=== PATIENT | female | born 2000 | race American Indian/Alaskan Native ===

== ENCOUNTER 2018-09-23 03:49 | Outpatient (CLI) | payer MEDICAID ==
[2018-09-23] MEDS ORDERED: LACTATED RINGERS 1,000 ML ONE (04:14)
[2018-09-23 04:42] VITALS: BP 118/76
[2018-09-23] MEDS ORDERED: LACTATED RINGERS 1,000 ML IV ONE (04:42)
[2018-09-23 05:59] LABS: Color,Urine Brown (Yellow)
[2018-09-23 06:00] LABS: Bilirubin,Urine Color Interference (Negative)
[2018-09-23 06:06] LABS: Bacteria,Urine 4+ /HPF (Negative); Blood,Urine LG (Negative); Mucus,Urine FEW /HPF
[2018-09-23] MEDS ORDERED: ANCEF/STERILE WATER 2 GM/20 ML 2 GM/20 ML SYRINGE IV NR (07:00)
== END 2018-09-23 07:13 | disposition home or self-care (01) ==
LOC: TRG 03:49
PROVIDERS: ATTEND Obstetrics & Gynecology
DX: O47.03 False labor before 37 completed weeks of gestation, third trimester (principal); Z3A.36 36 weeks gestation of pregnancy
CPT/HCPCS: 81001; J0690; J7120

== ENCOUNTER 2018-09-30 17:26 | Inpatient (IN) | payer MEDICAID ==
[2018-09-30] MEDS ORDERED: MINERAL OIL PO PRN (18:01)
[2018-09-30] MEDS ORDERED: PHENERGAN PO PRN (18:01)
[2018-09-30] MEDS ORDERED: BRETHINE SUB-Q PRN (18:01)
[2018-09-30] MEDS ORDERED: BRETHINE IVP PRN (18:01)
[2018-09-30] MEDS ORDERED: ZOFRAN IV PRN (18:01)
[2018-09-30] MEDS ORDERED: XYLOCAINE 2% INFILTRATI ONE (18:01)
[2018-09-30] MEDS ORDERED: SUBLIMAZE IV PRN (18:01)
[2018-09-30] MEDS ORDERED: STADOL IV PRN (18:01)
--- NOTE | 2018-09-30 18:01 | History and Physical Report ---
History of Present Illness Date of examination: 09/30/18 Chief complaint: Labor History of present illness: Pt is a 18yo BF EDC 10/16/18; EGA 37 5/7 weeks presents to L&D complaining of RUC's q 3-4 mins. She received late care at [facility] at 23 weeks after transfer from [place]. course has been unremarkable. records are available and GBS is Negative. Past History Past Medical History: no pertinent history Past Surgical History: no surgical history Social history: no significant social history, single - Obstetrical History Expected Date of Delivery: 10/16/18 Actual Gestation: 37 Week(s) 5 Day(s) : 1 Medications and Allergies Allergies Allergy/AdvReac Type Severity Reaction Status Date / Time No Known Allergies Allergy Unverified 07/20/18 11:54 Review of Systems All systems: negative - Vital Signs Vital signs: Vital Signs Pulse BP 90 121/69 09/30/18 17:38 09/30/18 17:38 Temp Pulse Resp BP Pulse Ox 90 121/69 09/30/18 17:38 09/30/18 17:38 - Physical Exam Breasts: Positive: deferred Cardiovascular: Regular rate Lungs: Positive: Clear to auscultation Abdomen: Positive: normal appearance Genitourinary (Female): Positive: normal external genitalia Vagina: Positive: normal moisture Uterus: Positive: enlarged Extremities: Positive: normal - Obstetrical FHR: category 1 Uterine Contraction Monitor Mode: External Cervical Dilatation: 5 (per nurse) Cervical Effacement Percentage: 80 (per nurse) station: -2 Uterine Contraction Pattern: Regular Uterine Tone Measurement Phase: Contraction Uterine Contraction Intensity: Moderate Results Result Diagrams: 09/30/18 17:59 All other labs normal. Assessment and Plan - Patient Problems (1) 37 weeks gestation of Onset Date: 09/30/18 Current Visit: Yes Status: Acute Plan to address problem: A: IUP @ 37 5/7 weeks in labor GBS Negative P: Admit to L&D for expectant vaginal delivery
[2018-09-30 18:48] LABS: Hematocrit 35.8 % (30.3-42.9); Hemoglobin 11.7 gm/dl (10.1-14.3); Mean Corpuscular HGB Conc 33 % (30-34); Mean Corpuscular Volume 74 fl (79-97); Platelet Count 263 K/mm3 (140-440); Red Blood Count 4.81 M/mm3 (3.65-5.03); Red Cell Distribution Width 19.3 % (13.2-15.2)
[2018-09-30] MEDS ORDERED: NARCAN 2 MG/2 ML IV PRN (18:54)
[2018-09-30] MEDS ORDERED: fentaNYL-BUPIV 2 MCG/ML-0.125% 200 MCG/100 ML BAG EPIDURAL SCH (19:00)
[2018-09-30] MEDS ORDERED: PITOCin/NS 20 UNIT/1000ML DRIP 20 UNITS/1,000 ML BAG IV SCH (19:00)
[2018-09-30] MEDS ORDERED: PITOCin/NS 30 UNIT/500ML 30 UNITS/500 ML BAG IV SCH (19:00)
[2018-09-30] MEDS ORDERED: SENSORCAINE/DEXTR 0.75-8.25% INFILTRATI ONE (19:04)
[2018-09-30] MEDS: LACTATED RINGERS 1,000 ML IV SCH ×2 (20:55→21:39)
--- NOTE | 2018-10-01 02:54 | Procedure Note ---
OB Delivery Note - Delivery Date of Delivery: 10/01/18 Surgeon: DANII BOWERS Estimated blood loss: 200cc - Vaginal Delivery presentation: vertex Delivery position: OP Intrapartum events: meconium Delivery induction: none Delivery augmentation: rupture of membranes, pitocin Delivery monitor: external FHT, external uterine Route of delivery: Delivery placenta: spontaneous Delivery cord: 3 umbilical vessels Episiotomy: none Delivery laceration: 1st degree (right labial - not bleeding, not repaired) Anesthesia: epidural Delivery comments: Infant delivered OP and placed on Mom's chest for [id number] bonding and delayed cord clamping, cut by Dad - Infant A at 1 minute: 8 at 5 minutes: 9 Infant Gender: Female (2789gms)
[2018-10-01] MEDS ORDERED: ZOFRAN IV PRN (02:56)
[2018-10-01] MEDS ORDERED: TUCKS PAD TP PRN (02:56)
[2018-10-01] MEDS ORDERED: DULCOLAX PR PRN (02:56)
[2018-10-01] MEDS ORDERED: LANSINOH TP PRN (02:56)
[2018-10-01] MEDS ORDERED: BENADRYL PO PRN (02:56)
[2018-10-01] MEDS ORDERED: PHENERGAN PO PRN (02:56)
[2018-10-01] MEDS ORDERED: NORCO 5/325 PO PRN (02:56)
[2018-10-01] MEDS ORDERED: TYLENOL PO PRN (02:56)
[2018-10-01] MEDS ORDERED: MILK OF MAGNESIA PO PRN (02:56)
[2018-10-01] MEDS ORDERED: PHENERGAN PR PRN (02:56)
[2018-10-01] MEDS ORDERED: PITOCin/NS 20 UNIT/1000ML DRIP 20 UNITS/1,000 ML BAG IV SCH (03:00)
[2018-10-01] MEDS ORDERED: SODIUM CHLORIDE FLUSH SYRINGE 10 ML IV PRN (03:00)
[2018-10-01] MEDS: IBUPROFEN PO SCH ×4 (07:26→22:28)
[2018-10-01] MEDS: PRENATAL VITAMIN PO SCH (10:03)
[2018-10-01] MEDS: COLACE PO SCH ×2 (10:03→22:31)
[2018-10-01] MEDS: FEOSOL PO SCH ×2 (10:03→22:31)
[2018-10-01 17:05] LABS: Hematocrit 28.3 % (30.3-42.9); Hemoglobin 9.3 gm/dl (10.1-14.3)
[2018-10-02] MEDS ORDERED: M-M-R II VACCINE SUB-Q ONE (02:56)
[2018-10-02] MEDS: IBUPROFEN PO SCH ×4 (03:00→22:33)
[2018-10-02] MEDS ORDERED: BOOSTRIX IM ONE (06:00)
[2018-10-02] MEDS: COLACE PO SCH ×2 (12:18→22:33)
[2018-10-02] MEDS: PRENATAL VITAMIN PO SCH (12:19)
[2018-10-02] MEDS: FEOSOL PO SCH ×2 (12:19→22:32)
--- NOTE | 2018-10-02 12:38 | Progress Note ---
Assessment and Plan - Patient Problems (1) 37 weeks gestation of Onset Date: 09/30/18 Current Visit: Yes Status: Resolved (2) (normal spontaneous vaginal delivery) Onset Date: 10/02/18 Current Visit: Yes Status: Resolved Plan to address problem: A: S/P - PPD #1 Doing well Asymptomatic anemia - stable P: May go home tomorrow. (3) Acute blood loss anemia Onset Date: 10/02/18 Current Visit: Yes Status: Resolved Subjective - Subjective Date of service: 10/02/18 Principal diagnosis: s/p - PPD #1 Interval history: Pt is feeling well without complaints. Bleeding has improved. Patient reports: appetite normal, voiding normally, pain well controlled, fla tus, ambulating normally, no dizzy ambulation, no nauseated : doing well, nursing well, bottle feeding Objective - Vital Signs Latest vital signs: Vital Signs Temp Pulse Resp BP BP Pulse Ox 10/02/18 07:36 98.1 F 73 16 103/69 100 10/02/18 00:00 98.2 F 85 20 103/62 10/01/18 16:47 98.3 F 93 H 20 111/66 99 Intake and Output 10/01/18 10/02/18 10/02/18 22:59 06:59 14:59 Intake Total 1560 240 360 Balance 1560 240 360 Intake: Oral 960 240 360 Intake, Free Water 600 Other: Total, Intake Amount 240 240 360 # Voids Indwelling Catheter 0 1 Void 1 1 - Exam Breasts: Present: deferred Abdomen: Present: normal appearance, soft Uterus: Present: normal, firm, fundal height below umbilicus Extremities: Present: normal - Labs Labs: Abnormal lab results 10/01/18 Range/Units 16:55 Hgb 9.3 L (10.1-14.3) gm/dl Hct 28.3 L D (30.3-42.9) % Laboratory Tests 09/30/18 09/30/18 09/30/18 17:59 19:20 19:39 WBC 13.6 H RBC 4.81 Hgb 11.7 Hct 35.8 MCV 74 L MCH 24 L MCHC 33 RDW 19.3 H Plt Count 263 RPR Nonreactive Blood Type O POSITIVE Antibody Screen Negative 10/01/18 16:55 WBC RBC Hgb 9.3 L Hct 28.3 L D MCV MCH MCHC RDW Plt Count RPR Blood Type Antibody Screen
[2018-10-03] MEDS: IBUPROFEN PO SCH (07:03)
[2018-10-03] MEDS: COLACE PO SCH (10:47)
[2018-10-03] MEDS: FEOSOL PO SCH (10:47)
[2018-10-03] MEDS: PRENATAL VITAMIN PO SCH (10:47)
--- NOTE | 2018-10-03 12:30 | Discharge Summary ---
Providers - Providers Date of Admission: 09/30/18 18:11 Date of discharge: 10/03/18 Attending physician: DANII BOWERS Primary care physician: DANII BOWERS Hospitalization Reason for admission: active labor, IUP at term Delivery: Episiotomy: none Laceration: 1st degree Other procedures: none complications: none Discharge diagnosis: IUP at term delivered [place] baby: female Hospital course: Unremarkable. Condition at discharge: Good Disposition: DC-01 TO HOME OR SELFCARE - Discharge Diagnoses (1) 37 weeks gestation of Status: Resolved (2) (normal spontaneous vaginal delivery) Status: Resolved (3) Acute blood loss anemia Status: Resolved Plan - Discharge Medications Prescriptions: Ferrous Sulfate [Feosol 325 MG tab] 325 mg PO BID #60 tablet Ibuprofen [Motrin 600 MG tab] 600 mg PO Q6H #30 tablet Vit-Fe Fumar-FA [ Vitamin] 1 each PO QDAY #30 tablet - Provider Discharge Summary Activity: routine, no sex for 6 weeks, no heavy lifting 4 weeks, no strenuous exercise Diet: routine Instructions: routine Additional instructions: [] Smoking cessation referral if applicable(refer to patient education folder for contact #) [] Refer to [facility] Booklet Call your doctor immediately for: * Fever > 100.5 * Heavy vaginal bleeding ( >1 pad per hour) * Severe persistent headache * Shortness of breath * Reddened, hot, painful area to leg or breast * Drainage or odor from incision. * Keep incision clean and dry at all times and follow doctor's instructions regarding bathing/showering - Follow up plan Follow up: DANII BOWERS MD [Primary Care Provider] - 6 Weeks Forms: [facility] Discharge Summary, Discharge Signature Page
[2018-10-03 19:21] VITALS: BP 112/71
== END 2018-10-03 18:00 | disposition home or self-care (01) | DRG 775 ==
LOC: TRG 17:26 → LD 18:11 → OB 10-01 07:24
PROVIDERS: ADMIT Obstetrics & Gynecology; ATTEND Obstetrics & Gynecology
PROC: 10E0XZZ Delivery of Products of Conception, External Approach (ICD-10-PCS; principal; 2018-10-01)
PROC: 3E0R3BZ Introduction of Anesthetic Agent into Spinal Canal, Percutaneous Approach (ICD-10-PCS; 2018-10-01)
PROC: 00HU33Z Insertion of Infusion Device into Spinal Canal, Percutaneous Approach (ICD-10-PCS; 2018-10-01)
PROC: 3E0234Z Introduction of Serum, Toxoid and Vaccine into Muscle, Percutaneous Approach (ICD-10-PCS; 2018-10-02)
DX: O77.0 Labor and delivery complicated by meconium in amniotic fluid (principal); Z3A.37 37 weeks gestation of pregnancy; Z37.0 Single live birth; O70.0 First degree perineal laceration during delivery; O90.81 Anemia of the puerperium; D62 Acute posthemorrhagic anemia; Z23 Encounter for immunization
CPT/HCPCS: 36415; 85014; 85018; 85027; 86592; 86850; 86900; 86901; 90707; G0378; J2590; J3010; J7120

== ENCOUNTER 2019-01-15 14:02 | Emergency (ER) | payer MEDICAID ==
[2019-01-15 14:37] VITALS: BP 111/73
--- NOTE | 2019-01-15 14:39 | Emergency Department Report ---
ED ENT HPI - General Chief complaint: Earache Stated complaint: RT EARACHE Time Seen by Provider: 01/15/19 14:36 Source: patient Mode of arrival: Ambulatory Limitations: No Limitations - History of Present Illness Initial comments: This is a 18-year-old female nontoxic well in appearance with no signs of distress presents to the ED with complaint of right earache. Patient denies any hearing loss. Denies any mastoid tenderness. Denies any fever, chills, headache, nausea, vomiting, chest pain or SOB. Denies any other complaints. Denies any allergies. MD complaint: ear pain -: days(s) Location: R ear Severity: mild Severity scale (0 -10): 8 Quality: aching Consistency: constant Improves with: none Worsens with: none Associated Symptoms: denies: fever, cough, gum swelling, toothache, pain with swallowing, sore throat, tinnitus, hearing loss, discharge from ear, rhinorrhea - Related Data Home Medications Medication Instructions Recorded Confirmed Last Taken Ferrous Sulfate [Feosol] 325 mg PO BID 09/30/18 09/30/18 09/29/18 Vit-Fe Fumar-FA [ 1 tab PO QDAY 09/30/18 09/30/18 09/29/18 Vitamin] Previous Rx's Medication Instructions Recorded Last Taken Type Ferrous Sulfate [Feosol 325 MG tab] 325 mg PO BID #60 tablet 10/03/18 Unknown Rx Ibuprofen [Motrin 600 MG tab] 600 mg PO Q6H #30 tablet 10/03/18 Unknown Rx Vit-Fe Fumar-FA [ 1 each PO QDAY #30 tablet 10/03/18 Unknown Rx Vitamin] Amoxicillin [Amoxicillin TAB] 875 mg PO BID #20 tablet 01/15/19 Unknown Rx Ibuprofen [Motrin] 600 mg PO Q8H PRN #20 tablet 01/15/19 Unknown Rx Allergies Allergy/AdvReac Type Severity Reaction Status Date / Time No Known Allergies Allergy Unverified 07/20/18 11:54 ED Dental HPI - General Chief complaint: Earache Stated complaint: RT EARACHE Time Seen by Provider: 01/15/19 14:36 Source: patient Mode of arrival: Ambulatory Limitations: No Limitations - Related Data Home Medications Medication Instructions Recorded Confirmed Last Taken Ferrous Sulfate [Feosol] 325 mg PO BID 09/30/18 09/30/18 09/29/18 Vit-Fe Fumar-FA [ 1 tab PO QDAY 09/30/18 09/30/18 09/29/18 Vitamin] Previous Rx's Medication Instructions Recorded Last Taken Type Ferrous Sulfate [Feosol 325 MG tab] 325 mg PO BID #60 tablet 10/03/18 Unknown Rx Ibuprofen [Motrin 600 MG tab] 600 mg PO Q6H #30 tablet 10/03/18 Unknown Rx Vit-Fe Fumar-FA [ 1 each PO QDAY #30 tablet 10/03/18 Unknown Rx Vitamin] Amoxicillin [Amoxicillin TAB] 875 mg PO BID #20 tablet 01/15/19 Unknown Rx Ibuprofen [Motrin] 600 mg PO Q8H PRN #20 tablet 01/15/19 Unknown Rx Allergies Allergy/AdvReac Type Severity Reaction Status Date / Time No Known Allergies Allergy Unverified 07/20/18 11:54 ED Review of Systems ROS: Stated complaint: RT EARACHE Other details as noted in HPI Constitutional: denies: chills, fever Eyes: denies: eye pain, eye discharge, vision change ENT: ear pain. denies: throat pain Respiratory: denies: cough, shortness of breath, wheezing Cardiovascular: denies: chest pain, palpitations Endocrine: no symptoms reported Gastrointestinal: denies: abdominal pain, nausea, diarrhea Genitourinary: denies: urgency, dysuria, discharge Musculoskeletal: denies: back pain, joint swelling, arthralgia Skin: denies: rash, lesions Neurological: denies: headache, weakness, paresthesias Psychiatric: denies: anxiety, depression Hematological/Lymphatic: denies: easy bleeding, easy bruising ED Past Medical Hx - Past Medical History Hx Hypertension: No Hx Congestive Heart Failure: No Hx Diabetes: No Hx Deep Vein Thrombosis: No Hx Renal Disease: No Hx Sickle Cell Disease: No Hx Seizures: No Hx Asthma: Yes (months ago) Hx COPD: No Hx HIV: No - Social History Smoking Status: Never Smoker - Medications Home Medications: Home Medications Medication Instructions Recorded Confirmed Last Taken Type Ferrous Sulfate [Feosol] 325 mg PO BID 09/30/18 09/30/18 09/29/18 History Vit-Fe Fumar-FA [ 1 tab PO QDAY 09/30/18 09/30/18 09/29/18 History Vitamin] Ferrous Sulfate [Feosol 325 MG tab] 325 mg PO BID #60 tablet 10/03/18 Unknown Rx Ibuprofen [Motrin 600 MG tab] 600 mg PO Q6H #30 tablet 10/03/18 Unknown Rx Vit-Fe Fumar-FA [ 1 each PO QDAY #30 tablet 10/03/18 Unknown Rx Vitamin] Amoxicillin [Amoxicillin TAB] 875 mg PO BID #20 tablet 01/15/19 Unknown Rx Ibuprofen [Motrin] 600 mg PO Q8H PRN #20 tablet 01/15/19 Unknown Rx ED Physical Exam - General Limitations: No Limitations General appearance: alert, in no apparent distress - Head Head exam: Present: atraumatic, normocephalic - Expanded ENT Exam Expanded Ear exam: Present: normal external inspection TM/Canal exam: Erythema: Right TM, Bulging: Right TM Mouth exam: Present: normal external inspection. Absent: drooling, trismus, muffled voice Teeth exam: Present: normal inspection Throat exam: Positive: normal inspection - Neck Neck exam: Present: normal inspection, full ROM. Absent: tenderness, meningismus, lymphadenopathy - Extremities Exam Extremities exam: Present: normal inspection, full ROM - Back Exam Back exam: Present: normal inspection, full ROM - Neurological Exam Neurological exam: Present: alert, oriented X3 - Psychiatric Psychiatric exam: Present: normal affect, normal mood - Skin Skin exam: Present: warm, dry, intact, normal color. Absent: rash ED Course - Reevaluation(s) Reevaluation #1: 01/15/19 14:38 Patient is speaking in full sentences with no signs of distress noted. ED Medical Decision Making - Medical Decision Making Patient was instructed to Follow-up with a primary care doctor in 3-5 days or if symptoms worsen and continue return to emergency room as soon as possible. At time of discharge, the patient does not seem toxic or ill in appearance. No acute signs of distress noted. Patient agrees to discharge treatment plan of care. No further questions noted by the patient. Critical care attestation.: If time is entered above; I have spent that time in minutes in the direct care of this critically ill patient, excluding procedure time. ED Disposition Clinical Impression: Right otitis media Disposition: DC-01 TO HOME OR SELFCARE Is pt being admited?: No Does the pt Need Aspirin: No Condition: Stable Instructions: Otitis Media (ED) Additional Instructions: Follow-up with a primary care doctor in 3-5 days or if symptoms worsen and continue return to emergency room as soon as possible Prescriptions: Amoxicillin [Amoxicillin TAB] 875 mg PO BID #20 tablet Ibuprofen [Motrin] 600 mg PO Q8H PRN #20 tablet PRN Reason: Pain Referrals: PRIMARY CARE, [Referring] - 3-5 Days JUSTIN MCKEON MD [Staff Physician] - 3-5 Days [facility] [Outside] - 3-5 Days Forms: Work/School Release Form(ED)
== END 2019-01-15 14:50 | disposition home or self-care (01) ==
LOC: ED 14:02
DX: H66.91 Otitis media, unspecified, right ear (principal); J45.909 Unspecified asthma, uncomplicated; Z88.6 Allergy status to analgesic agent; Z88.1 Allergy status to other antibiotic agents; Z88.8 Allergy status to other drugs, medicaments and biological substances
CPT/HCPCS: 99281

== ENCOUNTER 2020-08-02 19:00 | Emergency (ER) | payer MEDICAID ==
[2020-08-02 20:25] VITALS: BP 126/67
--- NOTE | 2020-08-02 20:43 | Emergency Department Report ---
ED ENT HPI - General Chief complaint: Sore Throat Stated complaint: STREP THROAT Time Seen by Provider: 08/02/20 20:39 Source: patient Mode of arrival: Ambulatory Limitations: No Limitations - History of Present Illness Initial comments: The patient was evaluated in the emergency department for symptoms described in the history of present illness. He/she was evaluated in the context of the global COVID-19 pandemic, which necessitated consideration that the patient might be at risk for infection with the virus that causes COVID-19. Institutional protocols and algorithms that pertain to the evaluation of patients at risk for COVID-19 are in a state of rapid change based on information released by regulatory bodies including the CDC and federal and state organizations. These policies and algorithms were followed during the patient's care in the emergency department. Please note that these policies, procedures and recommendations changed on a rapid basis. 20-year-old -[place] female presents to the emergency room with 1 day history of sore throat. Patient admits to fever chills earache on the left. Positive strep contact during the weekend. Negative Covid test today. Denies any past medical history currently takes no medications on a daily basis and has no known drug allergies. Makes it worse is swallowing. MD complaint: sore throat, difficulty swallowing Onset/Timin -: days(s) Location: throat Severity: severe Severity scale (0 -10): 9 Quality: stabbing, sharp Consistency: constant Improves with: none Worsens with: swallowing Associated Symptoms: fever, pain with swallowing, sore throat - Related Data Home Medications Medication Instructions Recorded Confirmed Last Taken Ferrous Sulfate [Feosol] 325 mg PO BID 09/30/18 09/30/18 09/29/18 Vit-Fe Fumar-FA [ 1 tab PO QDAY 09/30/18 09/30/18 09/29/18 Vitamin] Previous Rx's Medication Instructions Recorded Last Taken Type Ferrous Sulfate [Feosol 325 MG tab] 325 mg PO BID #60 tablet 10/03/18 Unknown Rx Ibuprofen [Motrin 600 MG tab] 600 mg PO Q6H #30 tablet 10/03/18 Unknown Rx Vit-Fe Fumar-FA [ 1 each PO QDAY #30 tablet 10/03/18 Unknown Rx Vitamin] Amoxicillin [Amoxicillin TAB] 875 mg PO BID #20 tablet 08/02/20 Unknown Rx Ibuprofen [Motrin 600 MG tab] 600 mg PO Q8H PRN #20 tablet 08/02/20 Unknown Rx Allergies Allergy/AdvReac Type Severity Reaction Status Date / Time No Known Allergies Allergy Unverified 07/20/18 11:54 ED Dental HPI - General Chief complaint: Sore Throat Stated complaint: STREP THROAT Time Seen by Provider: 08/02/20 20:39 Source: patient Mode of arrival: Ambulatory Limitations: No Limitations - Related Data Home Medications Medication Instructions Recorded Confirmed Last Taken Ferrous Sulfate [Feosol] 325 mg PO BID 09/30/18 09/30/18 09/29/18 Vit-Fe Fumar-FA [ 1 tab PO QDAY 09/30/18 09/30/18 09/29/18 Vitamin] Previous Rx's Medication Instructions Recorded Last Taken Type Ferrous Sulfate [Feosol 325 MG tab] 325 mg PO BID #60 tablet 10/03/18 Unknown Rx Ibuprofen [Motrin 600 MG tab] 600 mg PO Q6H #30 tablet 10/03/18 Unknown Rx Vit-Fe Fumar-FA [ 1 each PO QDAY #30 tablet 10/03/18 Unknown Rx Vitamin] Amoxicillin [Amoxicillin TAB] 875 mg PO BID #20 tablet 08/02/20 Unknown Rx Ibuprofen [Motrin 600 MG tab] 600 mg PO Q8H PRN #20 tablet 08/02/20 Unknown Rx Allergies Allergy/AdvReac Type Severity Reaction Status Date / Time No Known Allergies Allergy Unverified 07/20/18 11:54 ED Review of Systems ROS: Stated complaint: STREP THROAT Other details as noted in HPI Comment: All other systems reviewed and negative ED Past Medical Hx - Past Medical History Previous Medical History?: Yes Hx Hypertension: No Hx Congestive Heart Failure: No Hx Diabetes: No Hx Deep Vein Thrombosis: No Hx Renal Disease: No Hx Sickle Cell Disease: No Hx Seizures: No Hx Asthma: Yes (months ago) Hx COPD: No Hx HIV: No - Social History Smoking Status: Never Smoker Substance Use Type: None - Medications Home Medications: Home Medications Medication Instructions Recorded Confirmed Last Taken Type Ferrous Sulfate [Feosol] 325 mg PO BID 09/30/18 09/30/18 09/29/18 History Vit-Fe Fumar-FA [ 1 tab PO QDAY 09/30/18 09/30/18 09/29/18 History Vitamin] Ferrous Sulfate [Feosol 325 MG tab] 325 mg PO BID #60 tablet 10/03/18 Unknown Rx Ibuprofen [Motrin 600 MG tab] 600 mg PO Q6H #30 tablet 10/03/18 Unknown Rx Vit-Fe Fumar-FA [ 1 each PO QDAY #30 tablet 10/03/18 Unknown Rx Vitamin] Amoxicillin [Amoxicillin TAB] 875 mg PO BID #20 tablet 08/02/20 Unknown Rx Ibuprofen [Motrin 600 MG tab] 600 mg PO Q8H PRN #20 tablet 08/02/20 Unknown Rx ED Physical Exam - General Limitations: No Limitations General appearance: alert, in no apparent distress - Head Head exam: Present: atraumatic, normocephalic - Eye Eye exam: Present: normal appearance - Expanded ENT Exam Expanded Throat exam: Positive: tonsillar erythema, tonsillomegaly, tonsillar exudate - Neck Neck exam: Present: tenderness, full ROM, lymphadenopathy - Respiratory Respiratory exam: Present: normal lung sounds bilaterally. Absent: respiratory distress - Extremities Exam Extremities exam: Present: normal inspection, full ROM - Back Exam Back exam: Present: normal inspection - Neurological Exam Neurological exam: Present: alert, oriented X3, normal gait - Psychiatric Psychiatric exam: Present: normal affect, normal mood - Skin Skin exam: Present: warm, dry, intact, normal color. Absent: rash ED Course Vital Signs 08/02/20 20:20 Temperature 98.9 F Pulse Rate 57 L Respiratory 18 Rate Blood Pressure 126/67 O2 Sat by Pulse 98 Oximetry ED Medical Decision Making - Medical Decision Making 20-year-old -[place] female presents to the emergency room with 1 day history of sore throat. Patient admits to fever chills earache on the left. Positive strep contact during the weekend. Negative Covid test today. Denies any past medical history currently takes no medications on a daily basis and has no known drug allergies. Makes it worse is swallowing. Patient will be treated for strep with Augmentin 875 mg p.o. twice daily for 10 days. Ibuprofen 6 800 mg every 8 hours as needed. Discussed with patient she can do warm salt soaks. She can use [id number] Cepacol throat spray. Avoid having people drink after her. Wear her mask as much as possible. Follow-up with your primary care provider for symptoms get worse or persistent. Critical care attestation.: If time is entered above; I have spent that time in minutes in the direct care of this critically ill patient, excluding procedure time. ED Disposition Clinical Impression: Streptococcal sore throat Disposition: DC-01 TO HOME OR SELFCARE Is pt being admited?: No Does the pt Need Aspirin: No Condition: Stable Instructions: Strep Throat, Adult, [id number] Additional Instructions: Complete antibiotics as prescribed pain medication as needed. Increase your water intake by 2 to 3 L. Warm gargles with salt water or Cepacol throat spray may help. Please avoid having people drink after you. Prescriptions: Amoxicillin [Amoxicillin TAB] 875 mg PO BID #20 tablet Ibuprofen [Motrin 600 MG tab] 600 mg PO Q8H PRN #20 tablet PRN Reason: Pain Referrals: [facility] [Provider Group] - 3-5 Days Forms: Work/School Release Form(ED)
== END 2020-08-02 20:50 | disposition home or self-care (01) ==
LOC: ED 19:00
DX: J02.0 Streptococcal pharyngitis (principal); J45.909 Unspecified asthma, uncomplicated; Z79.899 Other long term (current) drug therapy
CPT/HCPCS: 99282